=== PATIENT | female | born 1990 | race Caucasian/White ===

== ENCOUNTER 2017-12-20 05:00 | Inpatient (IN) ==
--- OUTSIDE RECORDS SUMMARY | 2017-12-20 05:11 | External Medical Summary | Clinical Summary ---
:1990 Author Organization [facility] Address [address] [place] [address] Care Team Providers Name Role Phone Edie Tovar MD Primary Care Provider Source Comments Some departments are not documenting in the electronic medical record. If you do not see the information that you expected, contact Release of Information in the Health Information Management department at [phone] for further assistance in locating additional records.[facility] Social History Tobacco Use Types Packs/Day Years Used Date Never Assessed Sex Assigned at Date Recorded Not on file Plan of Treatment Health Maintenance Due Date Last Done Comments PHYSICAL (COMPREHENSIVE) EXAM 1997 PERTUSSIS VACCINE 2001 HIV SCREENING 2005 TETANUS VACCINE 09/11/2007 INFLUENZA VACCINE 02/03/2018
--- OUTSIDE RECORDS SUMMARY | 2017-12-20 05:11 | External Medical Summary | Continuity of Care Document ---
:1990 Author Organization [email or web address] Address [address] [place], [place] [id number] Phone Allergies, Adverse Reactions, Alerts Substance Reaction Severity Status No Known Drug Allergies Unknown Active Medications Medication Instructions Dosage Effective Dates Status Comments (start - stop) STOOL SOFTENER take 1 capsule by - Active (unknown strength) oral route every day at bedtime as needed 28 mg take 1 tablet by Not Available - Active iron-800 mcg oral route every tablet day Benadryl 25 mg take 2 capsule by 50 MG - Active capsule oral route every 4 - 6 hours as needed as needed Problems Condition Effective Dates (start - stop) Clinical Status Encntr screen for infections w sexl - mode of transmiss Encounter for screening for oth - infec/parastc diseases Encounter for suprvsn of normal - , first trimester Encounter For Other Specified - Screening 10 weeks gestation of - Encounter for suprvsn of normal - , third trimester 31 weeks gestation of - Encounter for suprvsn of normal - , third trimester 33 weeks gestation of - Matern care for oth or susp poor fetl - grth, 2nd tri, unsp Other malformation of placenta, second - trimester Encounter for suprvsn of normal - , second trimester 27 weeks gestation of - Maternal care for excess growth, - second tri, unsp 14 weeks gestation of - Maternal care for excess growth, - second tri, unsp Contact w and exposure to oth viral - communicable diseases 19 weeks gestation of - Oth disrd of amniotic fluid and - membrns, second tri, unsp Encounter for suprvsn of normal - , second trimester 19 weeks gestation of - Oth disrd of amniotic fluid and - membrns, second tri, unsp Other malformation of placenta, third - trimester 28 weeks gestation of - Other malformation of placenta, second - trimester Encounter for suprvsn of normal - , second trimester 23 weeks gestation of - Other malformation of placenta, third - trimester Encounter for suprvsn of normal - , third trimester 28 weeks gestation of - Encounter for suprvsn of normal - , third trimester 35 weeks gestation of - Procedures Procedure Date Unknown Results Test Name Date and Time Measure Units Reference Range Abnormal Flag Comments Unknown Advance Directives Directive Yes / No Effective Date File Name Unknown Encounters Encounter Practice Location Reason(s) Diagnoses Date Provider Care Team Description For Visit Members Viridiana [place] Encounter for Nov-2 Dougherty Referring In Womens suprvsn of normal 0-201 Layne. Provider: Albin VALLES, , third 8 700 Layne Dougherty PO Box [email or web address] weeks Medical , 700 1522, gestation of [facility], [facility] Dr [facility] Dr SMITH, 120, [place] 120, , Charles [place], [place], [place], tel: [phone]. , . tel: tel: [phone] Viridiana Soto Encounter for Nov-0 Dougherty Referring In Womens suprvsn of normal 6-201 Layne. Provider: Albin VALLES, , third 8 700 Layne Dougherty PO Box [email or web address] weeks Medical K, 700 1522, gestation of [facility] Dr [facility] Dr SMITH, 120, [place] 120, [id number], Charles [place], [facility], [place], tel: [phone]. , [place]. tel: tel: [phone] Viridiana Soto Juwan-0 Dougherty In Womens 3-201 Layne. [facility], 8 700 PO [address] Medical [address], [facility] [place], , [place], 120, [id number], [place], [place], tel:[phone] , [place]. tel: [phone] Viridiana [place] Encounter for Donnie-2 Dougherty Referring In Womens suprvsn of normal 2-201 Layne. Provider: Health REENA, , third 8 700 Layne Dougherty PO Box [id number] weeks Medical K, 700 1522, gestation of [facility] [place], Dr, [facility] Dr SMITH, 120, [place] 120, , [place], [place], [place], tel: [phone]. , [place]. tel: tel: [phone] Viridiana [place] Other Donnie-0 Dougherty Referring In Womens malformation of 6-201 Layne. Provider: Health REENA, placenta, third 8 700 Layne Dougherty PO Box trimesterEncounte Medical K, 700 1522, r for suprvsn of [place], normal , Dr, [facility] Dr SMITH, third [id number] 120, [place] 120, [id number], weeks gestation [place], [place], tel: [phone]. , [place]. tel: tel: [phone] Viridiana Soto Oth disrd of Donnie-0 Dougherty Referring In Womens Ultrasound amniotic fluid 6-201 Layne. Provider: Health REENA, and membrns, 8 700 Layne Dougherty PO Box second tri, Medical K, 700 1522, unspOther [facility] [place], malformation of Dr, [facility] Dr SMITH, placenta, third 120, [place] 120, [id number], [email or web address] weeks Charles [place], [place] gestation of [place], [place], tel:+ [phone]. , [place]. tel: tel: [phone] Viridiana [place] Matern care for September- Dougherty Referring In Womens oth or susp poor 5-201 Layne. Provider: Albin VALLES, fetl grth, 2nd 8 700 Layne Dougherty PO Box tri, unspOther Medical K, 700 1522, malformation of [facility] [place], placenta, second , [facility] Dr SIMTH, trimesterEncounte 120, [place] 120, , r for suprvsn of Charles [place], normal , LU[place], [place], tel:+[phone]. [email or web address] weeks , [place]. tel: gestation of tel: [phone] Viridiana Soto Other Apr-3 Dougherty Referring In Womens malformation of 0-201 Layne. Provider: Albin VALLES, placenta, second 8 700 Layne Dougherty PO Box [facility], 700 1522, [facility] , Dr, [facility] Dr SMITH, second 120, [place] 120, , [email or web address] weeks Charles [place], gestation of [place], [place], tel:+ [phone]. , [place]. tel: tel: [phone] Viridiana S[place] Oth disrd of Apr-0 Dougherty Referring In Womens amniotic fluid 2-201 Layne. Provider: Albin VALLES, and membrns, 8 700 Layne Dougherty PO Box second tri, Medical K, 700 1522, unspEncounter for [facility], suprvsn of normal Dr, [facility] Dr SMITH, , second 120, [place] 120, [id number], [email or web address] weeks Charles [place], [place] gestation of [place], tel:[phone]. , [place]. tel: tel: [phone] Viridiana S[place] Maternal care for Apr-0 Dougherty Referring In Womens Ultrasound excess 2-201 Layne. Provider: Albin VALLES, growth, second 8 700 Layne Doguherty PO Box tri, unspContact Medical , 700 1522, w and exposure to [facility], oth viral , [facility] Dr SMITH, communicable 120, [place] 120, [id number], [id number] weeks Charles [place], gestation of [place], [place], tel: [phone]. , [place]. tel: tel: [phone] Viridiana Soto Maternal care for Fe-2 Dougherty Referring In Womens excess 3-201 Layne. Provider: Health REENA, growth, second 8 700 Layne Dougherty PO Box tri, [email or web address] weeks [facility], 700 1522, gestation of [facility], , [facility] Dr SMITH, 120, [place] 120, [id number], Charles [place], [facility], [place], tel: [phone]. , [place]. tel: tel: [phone] Viridiana S[place] Encntr screen for May-2 Dougherty Referring In Womens infections w sexl 6-201 Layne. Provider: Albin VALLES, mode of 8 700 Layne Dougherty PO Box transmissEncounte Medical , 700 1522, r for screening [facility], for oth , [facility] Dr SMITH, infec/parastc 120, [place] 120, [id number], diseasesEncounter Charles [place], for suprvsn of [place], [place], tel: normal , [phone]. [facility] , . tel: trimesterEncounte tel: [phone] r For Other [id number] Specified [id number] weeks gestation of Viridiana S[place] Gianluca-0 Dougherty In Womens 9-201 Layne. Albin VALLES, 8 700 PO Box Medical [address], [place] [address] Mike [place], 120, [id number], [place], [place], tel:[phone] , [place]. tel: [phone] Family History Family Member Diagnosis Age At Onset No family history of Lung Disease No family history of Pulmonary Embolism No family history of Venous Thrombosis No family history of Stroke No family history of Hypertension No family history of Thyroid Disorder No family history of Kidney Disease No family history of Epilepsy No family history of Osteoporosis No family history of Diabetes No family history of Colon Cancer No family history of Breast Cancer No family history of Cardiovascular Disease No family history of Ovarian Cancer Immunizations Vaccine Date Status Comments Tdap completed Source: New Immunization Record Influenza, injectable, completed Source: Other Provider quadrivalent, preservative free, 3 yrs or older Influenza, injectable, completed Source: Other Provider quadrivalent, preservative free, 3 yrs or older Payers Payer name Insurance type Covered green party ID Authorization(s) [facility] [id number] [employer] [place] [employer] - Medicaid [place] [id number] [facility] [id number] [employer] - Medicaid [place] [id number] Social History Type Description Quantity Date Captured Unknown Vital Signs Date / Height Weight BMI Pulse Blood Temperature Respiratory Body Head BMI Time: Rate Pressure Rate Surface Circumference percentile Area Unknown Chief Complaint And Reason For Visit Unknown Chief Complaint And Reason For Visit Reason For Referral Reason For Referral Unknown Plan Of Care Date Type Action Status Appointment Mindy Franklin BOOKED Appointment Mindy Franklin BOOKED Appointment Mindy Franklin BOOKED Appointment Mindy Franklin BOOKED Appointment Mindy Franklin BOOKED Future Order: Radiology Order Complete OB Ultrasound > 14 Weeks Ordered ([id number]) Future Order: Radiology Order Ultrasound OB Follow-up ([id number]) Ordered Date Type Problem Goal Intervention Status Start Date Unknown. History Of Present Illness Encounter Date Complaint History Of Present Illness This patient has no known history of present illness Functional Status Encounter Date Functional Assessment Cognitive Assessment Unknown Medications Administered Medication Instructions Dosage Effective Dates (start - stop) Status Comments Drug Treatment Unknown Instructions Date Instruction Additional Information gestational glucose lab screening Zika virus assessment & precautions dentist, wt gain 25-35# HIV and other routine tests risk factors identified by history anticipated course of care nutrition and weight gain counseling, special diet toxoplasmosis precautions (cats / raw meat) exercise indications for ultrasound influenza vaccine environmental / work hazards travel tobacco (ask, advise, assess, assist and arrange) alcohol illicit / recreational drugs use of any medications (including supplements, vitamins, herbs, OTC drugs) smoking counseling domestic violence seat belt use genetic testing new ob handbook
--- OUTSIDE RECORDS SUMMARY | 2017-12-20 05:11 | External Medical Summary | Continuity of Care Document ---
:1990 Author Organization [facility] Address [address] [place], [place] [id number] Phone Allergies, Adverse Reactions, Alerts Substance Reaction Severity Status No Known Drug Allergies Unknown Active Medications Medication Instructions Dosage Effective Dates Status Comments (start - stop) acyclovir 400 mg take 1 tablet by 400 MG - Active tablet oral route 3 times every day STOOL SOFTENER take 1 capsule by - [...] Effective Dates (start - stop) Clinical Status Encounter for suprvsn of normal - , third trimester 35 weeks gestation of - Encntr screen for infections w sexl - [...] third trimester 33 weeks gestation of - Oth noninflammatory disorders of vulva - and perineum Encounter for suprvsn of normal - , third trimester 36 weeks gestation of - Matern care for [...] third trimester 28 weeks gestation of - Other viral diseases complicating - , third trimester Encounter for suprvsn of normal - , third trimester 37 weeks gestation of - Encounter For Screening For - Streptococcus B 36 weeks gestation of - Procedures Procedure Date OB Visit No Charge - UPSTAIRS MAID Results Test Name Date and Time Measure Units Reference Range Abnormal Flag Comments Unknown Advance Directives Directive Yes / No Effective Date File Name Unknown Encounters Encounter Practice Location Reason(s) Diagnoses Date Provider Care Team Description For Visit Members [facility] [place] Other viral Dougherty Referring In Womens diseases 3-201 Layne. Provider: Health PA, complicating 8 700 Laynejune Zamudiob PO Box , third Medical K, 700 1522, [facility] lilliam Mckeon for suprvsn of Dr, [place] [facility] Dr SMITH, normal , 120, [place] 120, [id number], third Charles [place], [place] weeks gestation [place], [place], tel: of [phone]. , [place]. tel: tel: [phone] Viridiana [place] Oth Juwan-3 Dougherty Referring In Womens noninflammatory 0-201 Layne. Provider: Albin VALLES, disorders of 8 700 Layne Dougherty PO Box vulva and Medical , 700 1522, perineumEncounter [facility], for suprvsn of Dr, [facility] Dr SMITH, normal , 120, [place] 120, [id number], third [email or web address] Charles [place], [place] weeks gestation [place]IS SMITH, tel: of [phone]. , [place]. tel: tel: [phone] [place] Encounter For Juwan-2 Lon Referring In Womens 7-201 Kyle. 700 Provider: Albin VALLES, Screening For 8 Medical Layne Dougherty PO Box Streptococcus B36 [facility], 700 1522, weeks gestation , [facility], of 120, [place] [address] SMITH, Charles, [facility] 120, [id number], Charles SMITH, [id number] [place], tel: , [place]. [phone]. tel: tel: [phone] [place] Encounter for Juwan-2 Dougherty Referring In Womens suprvsn of normal 0-201 Layne. Provider: Albin VALLES, , third 8 700 Layne Dougherty PO Box weeks [facility], 700 1522, gestation of [facility], , [facility] Dr SMITH, 120, [place] 120, [id number], [place], [place] SMITH, tel:[phone]. , [place]. tel: tel: [phone] Viridiana [place] Encounter for Juwan-0 Dougherty Referring In Womens suprvsn of normal 6-201 Layne. Provider: Albin VALLES, , third 8 700 Layne Dougherty PO Box [email or web address] weeks [facility], 700 1522, gestation of [facility], , [facility] Dr SMITH, 120, [place] 120, [id number], [place], [place] SMITH, tel: [phone]. , [place]. tel: tel: [phone] Viridiana [place] Encounter for Donnie-2 Dougherty Referring In Womens suprvsn of normal 2-201 Layne. Provider: Albin VALLES, , third 8 700 Layne Dougherty PO Box [email or web address] weeks Medical , 700 1522, gestation of [facility], , [facility] Dr SMITH, 120, [place] 120, , [place], [place] SMITH, tel:[phone]. , [place]. tel: tel: [phone] Associates [place] Other Donnie-0 Dougherty Referring In Womens malformation of 6-201 Layne. Provider: Albin VALLES, placenta, third 8 700 Layne Dougherty PO Box trimesterEncounte Medical , 700 1522, r for suprvsn of [facility], normal , , [facility] Dr SMITH, third [id number] 120, [place] 120, [id number], weeks gestation Charles [place], [place] of [place], tel: [phone]. , [place]. tel: tel: [phone] Viridiana S[place] Oth disrd of Donnie-0 Dougherty Referring In Womens Ultrasound amniotic fluid 6-201 Layne. Provider: Albin VALLES, and membrns, 8 700 Layne Dougherty PO Box second tri, Medical , 700 1522, unspOther [facility], malformation of Dr, [facility] Dr SMITH, placenta, third 120, [place] 120, [id number], [email or web address] weeks Charles [place], [place] gestation of [place] SMITH, tel:+ [phone]. , [place]. tel: tel: [phone] Viridiana S[place] Matern care for May-2 Dougherty Referring In Womens oth or susp poor 5-201 Layne. Provider: Albin VALLES, fetl grth, 2nd 8 700 Layne Dougherty PO Box tri, unspOther Medical , 700 1522, [facility], [facility], second , [facility] Dr SMITH, trimesterEncounte 120, [place] 120, , r for suprvsn of Charles [place], normal , LUIS, [place], tel:+ second [phone]. [email or web address] weeks , [place]. tel: gestation of tel: [phone] Associates Charles Other Apr-3 Dougherty Referring In Womens malformation of 0-201 Layne. Provider: Albin VALLES, placenta, second 8 700 Layne Dougherty [facility], 700 152, [facility], normal , Dr, [facility] Dr SMITH, second 120, [place] 120, , [email or web address] weeks Charles [place], gestation of [place] SMITH, tel: [phone]. , [place]. tel: tel: [phone] Associates Charles Ot disrd of Apr-0 Dougherty Referring In Womens amniotic fluid 2-201 Layne. Provider: Albin VALLES and membrns, 8 700 Layne Dougherty PO Box second [facility], Medical , 700 152, unspEncounter for [facility], suprvsn of normal Dr, [facility] Dr SMITH, , second 120, [place] 120, [id number], [id number] weeks Charles [place], gestation of [place] SMITH, tel: [phone]. , [place]. tel: tel: [phone] Associates Charles Maternal care for Apr-0 Dougherty Referring In Womens Ultrasound excess 2-201 Layne. Provider: Albin VALLES, growth, second 8 700 Layne Dougherty PO Box tri, unspContact Medical , 700 1522, w and exposure to [facility], oth viral , [facility] Dr SMITH, communicable 120, [place] 120, [id number], [id number] weeks Charles [place], gestation of [place] SMITH, tel:+ [phone]. , . tel: tel: [phone] Viridiana Soto Maternal care for Jun- Dougherty Referring In Womens excess 3-201 Layne. Provider: Albin VALLES, growth, second 8 700 Layne Dougherty PO Box tri, [email or web address] weeks Medical , 700 1522, gestation of [facility], , [facility] Dr SMITH, 120, [place] 120, [id number], [place], [place], [place], tel: [phone]. , . tel: tel: [phone] Viridiana S[place] Encntr screen for May- Dougherty Referring In Womens infections w sexl 6-201 Layne. Provider: Albin VALLES, mode of 8 700 Layne Dougherty PO Box transmissEncounte Medical , 700 1522, r for screening [facility], for oth , [facility] Dr SMITH, infec/parastc 120, [place] 120, , diseasesEncounter Charles [place], for suprvsn of [place], [place], tel: normal , [phone]. [facility] , . tel: trimesterEncounte tel: [phone] r For Other [id number] Specified [id number] weeks gestation of Viridiana [place] Gianluca-0 Dougherty In Womens 9-201 Layne. Albin VALLES, 8 700 PO Box Medical [address]22, [place], , [place], 120, [id number], [place], tel: [phone] , . tel: [phone] Family History Family Member Diagnosis Age At [...] older Payers Payer name Insurance type Covered democrat ID Authorization(s) [facility] [id number] [employer] - Medicaid [place] [id number] [facility] [id number] [employer] [place] [employer] [place] Medicaid [place] [id number] Social History Type Description Quantity Date Captured Alcohol Use Details No Caffeine Use Details Unknown Tobacco Use Status Unknown Smoking Status Never smoker Vital Signs Date / Height Weight BMI Pulse Blood Temperature Respiratory Body Head BMI Time: Rate Pressure Rate Surface Circumference percentile Area 170.10 29.6 131/85 2018 lbs 6 mm[Hg] 2:38 kg/m PM eter (2) Chief Complaint And Reason For Visit Unknown Chief Complaint And Reason For Visit Reason For Referral Reason For Referral Unknown Plan Of Care Date Type Action Status Appointment Mindy Franklin BOOKED Appointment Mindy Franklin BOOKED Appointment Mindy Franklin BOOKED Future Order: Radiology Order Complete OB Ultrasound > 14 Weeks Ordered ([id number]) Future Order: Radiology Order Ultrasound OB Follow-up ([id number]) Ordered Date Type Problem Goal Intervention Status [...]
--- OUTSIDE RECORDS SUMMARY | 2017-12-20 05:11 | External Medical Summary | Continuity of Care Document ---
:1990 Author Organization [facility] Chantilly Lace PA Address [address] [place], [place] [address] Phone Allergies, Adverse Reactions, Alerts Substance Reaction Severity Status No Known Drug Allergies Unknown Active Medications Medication Instructions Dosage Effective Dates Status Comments (start - stop) STOOL SOFTENER take 1 capsule by - Active (unknown strength) oral route every day at bedtime as needed Benadryl 25 mg take 2 capsule by 50 MG - Active capsule oral route every 4 - 6 hours as needed as needed 28 mg take 1 tablet by Not Available - Active iron-800 mcg oral route every tablet day Problems Condition Effective Dates (start - stop) Clinical Status Encounter for suprvsn of normal - , third trimester 33 weeks gestation of - Encntr screen for infections w sexl - mode of transmiss Encounter for screening for oth - infec/parastc diseases Encounter for suprvsn of normal - , first trimester Encounter For Other Specified - Screening 10 weeks gestation of - Encounter for suprvsn of normal - , third trimester 31 weeks gestation of - Matern care for [...] Procedures Procedure Date OB Visit No Charge Results Test Name Date and Time Measure Units Reference Range Abnormal Flag Comments Unknown Advance Directives Directive Yes / No Effective Date File Name Unknown Encounters Encounter Practice Location Reason(s) Diagnoses Date Provider Care Team Description For Visit Members Viridiana Soto Encounter for Nov-2 Dougherty Referring In Womens suprvsn of normal 0-201 Layne. Provider: Health PA, , third 8 700 Layne Dougherty PO Box [id number] weeks Medical , 700 1522, gestation of [facility], Dr [facility] [address] SMITH, 120, [place] 120, [id number], Charles [place], [facility], [place], tel: [phone]. [id number] , [place]. tel: tel: [phone] Viridiana Soto Encounter for Nov-0 Dougherty Referring In Womens suprvsn of normal 6-201 Layne. Provider: Health PA, , third 8 700 Layne Dougherty PO Box [id number] weeks Medical , 700 1522, gestation of [facility] Dr [facility] [address] SMITH, 120, [place] 120, [id number], Charles [place], [facility], [place], tel: [phone]. , [place]. tel: tel: [phone] Associates [facility] Encounter for Donnie-2 Dougherty Referring In Womens suprvsn of normal 2-201 Layne. Provider: Albin VALLES, , third 8 700 Layne Dougherty PO Box [id number] weeks Medical , 700 1522, gestation of [facility], Dr, [facility] Dr SMITH, 120, [place] 120, , Charles [place], [place] SMITH, tel: [phone]. , [place]. tel: tel: [phone] Associates Charles Other Donnie-0 Dougherty Referring In Womens malformation of 6- Layne. Provider: Albin VALLES, placenta, third 8 700 Layne Dougherty PO Box trimesterEncounte Medical , 700 1522, r for suprvsn of [facility], normal , , [facility] [address] SMITH, third [email or web address] 120, [place] 120, [id number], weeks gestation Charles [place], [place] of [place], [place], tel: [phone]. , [place]. tel: tel: [phone] Viridiana Soto Oth disrd of Donnie-0 Dougherty Referring In Womens Ultrasound amniotic fluid 6- Layne. Provider: Albin VALLES, and membrns, 8 700 Layne Dougherty PO Box second tri, Medical , 700 1522, unspOther [facility], malformation of Dr, [facility] Dr SMITH, placenta, third 120, [place] 120, [id number], [email or web address] weeks Charles [place], [place] gestation of [place], [place], tel: [phone]. , [place]. tel: tel: [phone] Viridiana Soto Matern care for May-2 Dougherty Referring In Womens oth or susp poor 5-201 Layne. Provider: Health REENA, fetl grth, 2nd 8 700 Layne Dougherty PO Box tri, [facility], malformation of [facility], placenta, second Dr, [facility] Dr SMITH, trimesterEncounte 120, [place] 120, [id number], r for suprvsn of Charles [place], normal , [place] SMITH, tel: second [phone]. [email or web address] weeks , [place]. tel: gestation of tel: [phone] Associates Charles Other Apr-3 Dougherty Referring In Womens malformation of 0-201 Layne. Provider: Health REENA, placenta, second 8 700 Layne Dougherty PO Box trimesterEncounte Medical K, 700 1522, r for suprvsn of [place], normal , , [facility] Dr SMITH, second 120, [place] 120, [id number], [email or web address] weeks Charles [place], gestation of LU[place] SMITH, tel: [phone]. , [place]. tel: tel: [phone] Viridiana Soto Oth disrd of Apr-0 Dougherty Referring In Womens amniotic fluid 2-201 Layne. Provider: Health REENA, and membrns, 8 700 Layne Dougherty PO Box second tri, Medical K, 700 1522, unspEncounter for [facility] Mike, suprvsn of normal Dr, [facility] Dr SMITH, , second 120, [place] 120, [id number], [email or web address] weeks Charles [place], gestation of LUIS SMITH, tel:+ [phone]. , [place]. tel: tel: [phone] Viridiana Soto Maternal care for Apr-0 Dougherty Referring In Womens Ultrasound excess 2-201 Layne. Provider: Health REENA, growth, second 8 700 Layne Dougherty PO Box tri, unspContact Medical K, 700 1522, w and exposure to [facility] Mike, oth viral , [facility] Dr SMITH, communicable 120, [place] 120, [id number], [email or web address] weeks Charles [place], gestation of LUIS SMITH, tel:[phone]. , [place]. tel: tel: [phone] Viridiana Soto Maternal care for Jun- Dougherty Referring In Womens excess 3-201 Layne. Provider: Albin VALLES, growth, second 8 700 Layne Dougherty PO Box tri, unsp14 weeks Medical , 700 1522, gestation of [facility], Dr, [facility] Dr SMITH, 120, [place] 120, [id number], Charles [place], [place], [place], tel:+ [phone]. , . tel: tel: [phone] Viridiana Soto Encntr screen for Dougherty Referring In Womens infections w sexl 6-201 Layne. Provider: Albin VALLES, mode of 8 700 Layne Dougherty PO Box [facility] , 700 1522, r for screening [facility], for oth , [facility] Dr SMITH, infec/parastc 120, [place] 120, , [facility], for suprvsn of [place], [place], tel: normal , [phone]. [facility] , . tel: trimesterEncounte tel: [phone] r For Other [phone] Specified [id number] weeks gestation of Viridiana Soto May-0 Dougherty In Womens 9-201 Layne. Albin VALLES, 8 700 PO Box Medical 1522, [place], , [facility] [place], 120, , [facility], tel: [phone] , . tel: [phone] Family History Family Member Diagnosis Age At [...] older Payers Payer name Insurance type Covered republican ID Authorization(s) [facility] [id number] [employer] [place] [employer] [place] [id number] [facility] [id number] [employer] [place] [employer] [place] [id number] Social History Type Description Quantity Date Captured Alcohol Use Details No Caffeine Use Details Unknown Tobacco Use Status Unknown Smoking Status Never smoker Vital Signs Date / Height Weight BMI Pulse Blood Temperature Respiratory Body Head BMI Time: Rate Pressure Rate Surface Circumference percentile Area 164.30 28.6 116/ lbs 4 mm[Hg] 11:10 kg/m AM eter (2) Chief Complaint And Reason For Visit Unknown Chief Complaint And Reason For Visit Reason For Referral Reason For Referral Unknown Plan Of Care Date Type Action Status Appointment Mindy Franklin BOOKED Appointment Mindy Franklin BOOKED Appointment Mindy Franklin BOOKED Appointment Mindy Franklin BOOKED Appointment Mindy Franklin BOOKED Future Order: Radiology Order Complete OB Ultrasound > 14 Weeks Ordered ([id number]) Future Order: Radiology Order Ultrasound OB Follow-up ([id number]) Ordered Date Type Problem Goal Intervention Status [...]
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
--- OUTSIDE RECORDS SUMMARY | 2017-12-20 05:12 | External Medical Summary | Continuity of Care Document ---
:1990 Author Organization [facility] Address [address] [place], [place] [phone] Phone Allergies, Adverse Reactions, Alerts Substance Reaction Severity Status No Known Drug Allergies Unknown Active Medications Medication Instructions Dosage Effective Dates Status Comments (start - stop) 28 mg take 1 tablet by Not [...] - Screening 10 weeks gestation of - Maternal care for excess growth, - second tri, unsp 14 weeks gestation of - Procedures Procedure Date Unknown Results Test Name Date and Time Measure Units Reference Range Abnormal Flag Comments Unknown Advance Directives Directive Yes / No Effective Date File Name Unknown Encounters Encounter Practice Location Reason(s) Diagnoses Date Provider Care Team Description For Visit Members Viridiana Soto Jul- Dougherty In Womens 5-201 Layne. Health REENA, 8 700 PO Box Medical 15[address], [place] [address] Mike, [place], 120, , [place], [place], tel:[phone] , [place]. tel: [phone] Viridiana Soto Maternal care for Jun- Dougherty Referring In Womens excess 3-201 Layne. Provider: Albin VALLES, growth, second tri, 8 700 Layne Dougherty PO Box unsp14 weeks Medical K, 700 1522, gestation of [place], , [facility] [place], 120, [place] 120, , [facility] [place] [place], tel: [phone]. , . tel: tel: [phone] Associates Charles Encntr screen for May- Dougherty Referring In Womens infections w sexl 6-201 Layne. Provider: Health REENA, mode of 8 700 Layne Dougherty PO Box [facility] K, 700 1522, for screening for [place], ot infec/parastc , [facility] Dr SMITH, diseasesEncount 120, [place] 120, , for suprvsn of Charles [place], normal , [place], tel: first [phone]. [facility] , . tel: For Other Specified tel: [phone] [email or web address] weeks gestation of Viridiana Soto May- Dougherty In Womens 9-201 Layne. Health REENA, 8 700 PO Box Medical 1522, [place], , [place], 120, , [facility] [place], tel: [phone] , . tel: [phone] Family History Family Member Diagnosis Age At [...] Ovarian Cancer Immunizations Vaccine Date Status Comments Influenza, injectable, quadrivalent, completed Source: Other Provider preservative free, 3 yrs or older Influenza, injectable, quadrivalent, completed Source: Other Provider preservative free, 3 yrs or older Payers Payer name Insurance type Covered republican ID Authorization(s) TOÑO AGUILAR [id number] [employer] - Medicaid [place] [id number] Social History Type Description Quantity Date Captured [...] Mindy Franklin BOOKED Appointment Mindy Franklin BOOKED Date Type Problem Goal Intervention Status Start Date Unknown. History Of Present Illness Encounter Date Complaint History Of Present Illness This patient has no known history of present illness Functional Status Encounter Date Functional Assessment Cognitive Assessment Unknown Medications Administered Medication Instructions Dosage Effective Dates (start - stop) Status Comments Drug Treatment Unknown Instructions Date Instruction Additional Information Zika virus assessment & precautions dentist, wt [...]
--- OUTSIDE RECORDS SUMMARY | 2017-12-20 05:12 | External Medical Summary | Continuity of Care Document ---
:1990 Author Organization [facility] Address [address] [place], [place] [phone] Phone Allergies, Adverse Reactions, Alerts Substance Reaction Severity Status No Known Drug Allergies Unknown Active Medications Medication Instructions Dosage Effective Dates Status Comments (start - stop) 28 mg take 1 tablet by Not Available - Active iron-800 mcg oral route every tablet day Problems Condition Effective Dates (start - stop) Clinical Status Maternal care for excess growth, - second tri, unsp 14 weeks gestation of - Encntr screen for infections w sexl - mode of transmiss Encounter for screening for oth - infec/parastc diseases Encounter for suprvsn of normal - , first trimester Encounter For Other Specified - Screening 10 weeks gestation of - Procedures Procedure Date OB Visit No Charge Results Test Name Date and Time Measure Units Reference Range Abnormal Flag Comments Unknown Advance Directives Directive Yes / No Effective Date File Name Unknown Encounters Encounter Practice Location Reason(s) Diagnoses Date Provider Care Team Description For Visit Members Viridiana Soto Maternal care for Jun- Dougherty Referring In Womens excess 3-201 Layne. Provider: Health [place], growth, second tri, 8 700 Layne Dougherty PO Box unsp14 weeks Medical K, 700 1522, gestation of [place], , [place], 120, [place] 120, [id number], Charles [place], [place], [place], tel:[phone]. [id number] , [place]. tel:+ tel: [phone] Viridiana Soto Encntr screen for Gianluca-2 Dougherty Referring In Womens infections w sexl 6-201 Layne. Provider: Health REENA, mode of 8 700 Layne Dougherty PO Box [facility] K, 700 1522, for screening for [place], peter infec/parastc , [facility] Dr SMITH, [facility], [place] 120, , for suprvsn of [facility] normal , [place], tel: first [phone]. [facility] , . tel:+[phone] For Other Specified tel: [phone] [id number] weeks gestation of Associates [place] Dougherty In Womens Layne. Albin VALLES, 8 700 PO [address] Medical [address]22, [place], , [place], 120, [id number], [facility] [place], tel: [phone] , . tel: [phone] Family History Family Member Diagnosis Age At [...] older Payers Payer name Insurance type Covered libertarian ID Authorization(s) [facility] [id number] [employer] - Medicaid [place] [id number] Social History Type Description Quantity Date Captured Alcohol Use Details No Caffeine Use Details Unknown Tobacco Use Status Unknown Smoking Status Never smoker Vital Signs Date / Height Weight BMI Pulse Blood Temperature Respiratory Body Head BMI Time: Rate Pressure Rate Surface Circumference percentile Area 143.50 25.0 124/77 2018 lbs 2 mm[Hg] 9:41 kg/m AM eter (2) Chief Complaint And [...]
--- OUTSIDE RECORDS SUMMARY | 2017-12-20 05:12 | External Medical Summary | Continuity of Care Document ---
:1990 Author Organization [facility] Address [address] [place], [place] [phone] Phone Allergies, Adverse Reactions, Alerts Substance Reaction [...] Care Team Description For Visit Members Associates Charles Encntr screen for Dougherty Referring In Womens infections w sexl 6-201 Layne. Provider: Albin VALLES, mode of 8 700 Layne Dougherty PO Box [facility], 700 7152, for screening for [facility], ot infec/parastc , [facility] [place], [facility] 120, [place] 120, [id number], for suprvsn of Charles [place], normal , [place], [place], tel:+[phone]. [id number] [facility] , . tel:+[phone] For Other Specified tel: [phone] [id number] weeks gestation of Associates Charles Dougherty In Womens 5-201 Layne. [facility], 8 700 PO Box Medical [address], [place] [address] Mike, [facility] [place], 120, [id number], [facility] [place], tel:[phone] 1967[address] , . tel: [phone] Viridiana Soto Dougherty In Womens 9-201 Layne. [facility], 8 700 PO [place] [facility] [address], [address] Mike, [place], 120, [id number], [facility] [place], tel:[phone] , [place]. tel: [phone] Family History Family Member Diagnosis Age At [...] Insurance type Covered green party ID Authorization(s) [facility] [id number] Social History Type Description Quantity Date Captured Unknown Vital Signs Date / Height Weight BMI Pulse Blood Temperature Respiratory Body Head BMI Time: Rate Pressure Rate Surface Circumference percentile Area Unknown Chief Complaint And Reason For Visit Unknown Chief Complaint And Reason For Visit Reason For Referral Reason For Referral Unknown Plan Of Care Date Type Action Status Appointment Mindy Franklin BOOKED Future Order: Lab Order Pap Smear With HPV Reflex If ASCUS Ordered ([id number]), Collected on: Date Type Problem Goal Intervention Status Start [...]
--- OUTSIDE RECORDS SUMMARY | 2017-12-20 05:12 | External Medical Summary | Continuity of Care Document ---
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, second tri, unsp Encounter for suprvsn of normal - , second trimester 19 weeks gestation of - Encntr screen for [...] communicable diseases 19 weeks gestation of - Procedures Procedure Date 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 Provider: marielle Bermudez 8 700 Layne Dougherty PO Box second tri, Medical K, 700 1522, unspEncounter for [facility], suprvsn of normal , [facility] [address] SMITH, , second 120, [place] 120, , [id number] weeks Charles [place], gestation of [place] SMITH, tel:+ [phone]. , [place]. tel: tel: [phone] Viridiana [place] Maternal care for Apr-0 Dougherty Referring In Womens Ultrasound excess 2-201 Layne. Provider: Health REENA, growth, second 8 700 Layne Dougherty PO [address] tri, unspContact Medical , 700 1522, w and exposure to [facility], otliam viral , [facility] Dr SMITH, communicable 120, [place] 120, , [email or web address] weeks Charles [place], gestation of [place] SMITH, tel:+ [phone]. , [place]. tel: tel: [phone] Viridiana [place] Maternal care for Feb-2 Dougherty Referring In Womens excess 3-201 Layne. Provider: Albin VALLES, growth, second 8 700 Layne Dougherty PO Box tri, unsp14 weeks Medical , 700 1522, gestation of [facility] Mike, , [facility] Dr SMITH, 120, [place] 120, , Charles [place], [place], [place], tel: [phone]. , [place]. tel: tel: [phone] Viridiana [place] Encntr screen for Gianluca-2 Dougherty Referring In Womens infections w sexl 6-201 Layne. Provider: Health REENA, mode of 8 700 Layne Dougherty PO Box [facility], 700 1522, r for screening [facility], for oth , [facility] Dr SMITH, infec/parastc 120, [place] 120, , diseasesEncounter Charles [place], for suprvsn of LUIS, LUIS, tel: normal , [phone]. first , [place]. tel:+ trimesterEncounte tel: [phone] r For Other [id number] Specified [id number] weeks gestation of Associates Charles Dougherty In Womens 9-201 [facility], 8 700 [facility] [address], [address] Mike, [facility] [place], 120, [id number], [place], [place], tel: [phone] , . tel: [phone] Family History Family Member Diagnosis Age At [...] older Payers Payer name Insurance type Covered constitution party ID Authorization(s) [facility] [id number] [employer] [place] [employer] - Medicaid [place] [id number] Social History Type Description Quantity Date Captured Alcohol Use Details No Caffeine Use Details Unknown Tobacco Use Status Unknown Smoking Status Never smoker Vital Signs Date / Height Weight BMI Pulse Blood Temperature Respiratory Body Head BMI Time: Rate Pressure Rate Surface Circumference percentile Area 25.0 2 10:39 kg/m AM eter (2) 148.90 25.9 120/75 2018 lbs 6 mm[Hg] 10:45 kg/m AM eter (2) Chief Complaint And Reason For Visit Unknown Chief Complaint And Reason For Visit Reason For Referral Reason For Referral Unknown Plan Of Care Date Type Action Status Appointment Mindy Franklin BOOKED Future Order: Radiology Order Complete OB Ultrasound > 14 Weeks Ordered ([id number]) Date Type Problem Goal Intervention Status Start Date Unknown. History Of Present Illness Encounter Date Complaint History Of Present Illness This patient has no known history of present illness Functional Status Encounter Date Functional Assessment Cognitive Assessment Unknown Medications Administered Medication Instructions Dosage Effective Dates (start - stop) Status Comments Drug Treatment Unknown Instructions Date Instruction Additional Information Zika virus assessment & precautions dentistkatelynn gain 25-35# HIV and other routine tests [...]
--- OUTSIDE RECORDS SUMMARY | 2017-12-20 05:12 | External Medical Summary | Continuity of Care Document ---
:1990 Author Organization [facility] Address [address] [place], [place] [id number] Phone Allergies, Adverse Reactions, Alerts Substance Reaction [...] - trimester 28 weeks gestation of - Encntr screen for [...] second trimester 19 weeks gestation of - Other malformation of placenta, second - trimester Encounter for suprvsn of normal - , second trimester 23 weeks gestation of - Other malformation of placenta, third - trimester Encounter for suprvsn of normal - , third trimester 28 weeks gestation of - Procedures Procedure Date Ultrasnd preg uterus, flwup/repeat Results Test Name Date and Time Measure Units Reference Range Abnormal Flag Comments Unknown Advance Directives Directive Yes / No Effective Date File Name Unknown Encounters Encounter Practice Location Reason(s) Diagnoses Date Provider Care Team Description For Visit Members Viridiana [place] Encounter for Dougherty Referring In Womens suprvsn of normal 2-201 Layne. Provider: Albin VALLES, , third 8 700 Layne Dougherty PO Box [id number] weeks Medical , 700 1522, gestation of [facility], , [facility] Dr SMITH, 120, [place] 120, [id number], [place], [place] SMITH, tel: [phone]. , [place]. tel: tel: [phone] Viridiana [place] Other Donnie-0 Dougherty Referring In Womens malformation of 6-201 Layne. Provider: Albin VALLES, placenta, third 8 700 Layne Dougherty PO Box trimesterEncounte Medical , 700 1522, r for suprvsn of [facility], normal , , [place] Dr SMITH, third [email or web address] 120, [place] 120, [id number], weeks gestation Charles [place], of LUIS SMITH, tel: [phone]. , [place]. tel: tel: [phone] Viridiana [place] Otliam disrd of Donnie-0 Dougherty Referring In Womens Ultrasound amniotic fluid 6-201 Layne. Provider: Health PA, and membrns, 8 700 Layne Dougherty PO Box second [facility], Medical K, 700 152, unspOther [facility] Mike, malformation of Dr, [facility] Dr SMITH, placenta, third 120, [place] 120, [id number], [id number] weeks Charles [place], gestation of [place] SMITH, tel:+ [phone]. , [place]. tel: tel: [phone] Viridiana [place] Matern care for September- Dougherty Referring In Womens oth or susp poor 5-201 Layne. Provider: Albin VALLES, fetl grth, 2nd 8 700 Layne Dougherty PO Box tri, [facility], 700 152, malformation of [facility] Mike, placenta, second , [facility] Dr SMITH, trimesterEncounte 120, [place] 120, , r for suprvsn of Charles [place], normal , LU[place], [place], tel: second [phone]. [id number] weeks , [place]. tel: gestation of tel: [phone] Viridiana [place] Other Apr-3 Dougherty Referring In Womens malformation of 0-201 Layne. Provider: Albin VALLES, placenta, second 8 700 Layne Dougherty PO Box trimesterEnckern valleye Medical , 700 152, r for suprvsn of [place], normal , Dr, [facility] Dr SMITH, second 120, [place] 120, [id number], [email or web address] weeks Charles [place], [place] gestation of LUIS SMITH, tel:+ [phone]. , [place]. tel: tel: [phone] Viridiana [place] Oth disrd of Apr-0 Dougherty Referring In Womens amniotic fluid 2-201 Layne. Provider: Albin VALLES, and membrns, 8 700 Layne Dougherty PO Box second [facility], Medical K, 700 152, unspEncounter for [facility], suprvsn of normal Dr, [facility] Dr SMITH, , second 120, [place] 120, [id number], [id number] weeks Charles [place], [place] gestation of LUIS SMITH, tel:[phone]. , [place]. tel: tel: [phone] Viridiana [place] Maternal care for Apr-0 Dougherty Referring In Womens Ultrasound excess 2-201 Layne. Provider: Albin VALLES, growth, second 8 700 Layne Dougherty PO Box tri, unspContact Medical , 700 1522, w and exposure to [facility], otliam viral , [facility] Dr SMITH, communicable 120, [place] 120, [id number], weeks Charles [place], gestation of [place], [place], tel: [phone]. , [place]. tel: tel: [phone] Viridiana [place] Maternal care for Feb-2 Dougherty Referring In Womens excess 3-201 Layne. Provider: Albin VALLES, growth, second 8 700 Layne Dougherty PO Box tri, unsp14 weeks Medical , 700 1522, gestation of [facility] Mike, , [facility] Dr SMITH, 120, [place] 120, [id number], Charles [place], [place], [place], tel: [phone]. , [place]. tel: tel: [phone] Viridiana [place] Encntr screen for Gianluca-2 Dougherty Referring In Womens infections w sexl 6-201 Layne. Provider: Albin VALLES, mode of 8 700 Layne Dougherty PO Box transmissEnckern valleye Medical , 700 1522, r for screening [facility] [place], for otliam [place], [facility] Dr SMITH, infec/parastc 120, [place] 120, [id number], diseasesEncounter Charles [place], for suprvsn of [place], [place], tel: normal , [phone]. [facility] , [place]. tel: trimesterEncounte tel: [phone] r For Other [id number] Specified [id number] weeks gestation of Associates Charles Gianluca-0 Dougherty In Womens 9-201 Layne. Albin VALLES, 8 700 PO Box Medical [address], [place] [address] Mike, [facility], 120, [id number], [place], [place], tel:[phone] , . tel:[phone] Family History Family Member Diagnosis Age At [...] name Insurance type Covered democrat ID Authorization(s) [facility] [id number] [employer] [place] [employer] - Medicaid [place] [id number] [facility] [id number] [employer] [place] [employer] - Medicaid [place] [id number] Social History Type Description Quantity Date Captured [...] Mindy Franklin BOOKED Future Order: Radiology Order Ultrasound OB Follow-up ([id number]) Ordered Future Order: Radiology Order Complete OB Ultrasound > 14 Weeks Ordered ([id number]) Date Type Problem Goal Intervention Status Start [...] virus assessment & precautions dentist, wt gain -35# HIV and other routine tests risk factors [...]
--- OUTSIDE RECORDS SUMMARY | 2017-12-20 05:12 | External Medical Summary | Continuity of Care Document ---
:1990 Author Organization [facility] Address [address] [place], [place] [id number] Phone Allergies, Adverse Reactions, Alerts Substance Reaction [...] Team Description For Visit Members Viridiana S[place] Jul-0 Dougherty In Womens 3-201 Layne. Health REENA, 8 700 PO Box Medical [address], [address] Mike, [place], 120, , [place], tel:[phone] , [place]. tel: [phone] Viridiana [place] Maternal care for Jun-2 Dougherty Referring In Womens excess 3-201 Layne. Provider: Albin VALLES, growth, second tri, 8 700 Layne Dougherty PO Box unsp14 weeks Medical K, 700 1522, gestation of [place], , [facility] [place], 120, [place] 120, , [facility] [place], [place], tel: [phone]. , . tel: tel: [phone] Associates Charles Encntr screen for May- Dougherty Referring In Womens infections w sexl 6-201 Layne. Provider: Health REENA, mode of 8 700 Layne Dougherty PO Box [facility] K, 700 1522, for screening for [place] Juarez Mckeon, ot infec/parastc , [facility] Dr SMITH, diseasesEncount 120, [place] 120, , for suprvsn of [place], normal , [place], [place], tel: first [phone]. [facility] , . tel: For Other Specified tel: [phone] [id number] weeks gestation of Viridiana [place] May- Dougherty In Womens 9-201 Layne. Health REENA, 8 700 PO Box Medical 1522, [place], , [facility] [place], 120, , [facility] [place], tel: [phone] , . tel: [phone] Family History Family Member Diagnosis Age At [...] Insurance type Covered green party ID Authorization(s) TOÑO AGUILAR [id number] [employer] [place] [employer] - Medicaid [place] [id number] Social History Type Description Quantity Date Captured [...]
--- OUTSIDE RECORDS SUMMARY | 2017-12-20 05:12 | External Medical Summary | Continuity of Care Document ---
:1990 Author Organization [facility] Address [address] [place], [place] [address] Phone Allergies, Adverse Reactions, Alerts Substance Reaction Severity Status No Known Drug Allergies Unknown Active Medications Medication Instructions Dosage Effective Dates Status Comments (start - stop) 28 mg take 1 tablet by Not Available - Active iron-800 mcg oral route every tablet day Linzess 290 mcg take 1 capsule by 290 MCG - No Longer capsule oral route every Active day on an empty stomach at least 30 minutes before 1st meal of the day Problems Condition Effective Dates (start - [...] Charles Encntr screen for Dougherty Referring In Women infections w sexl 6-201 Layne. Provider: Health [place], mode of 8 700 Layne Dougherty PO Box [facility], 700 1522, for screening for [place] [place] [facility] Mike, ot infec/parastc , [facility] Dr SMITH, [facility] 120, [place] 120, [id number], for suprvsn of Charles [place], normal , LUIS, LUIS, tel:[phone]. [id number] [facility] , . tel:[phone] For Other Specified tel:[phone] Sweudwyat46 weeks gestation of Associates Charles Dougherty In Womens 9-201 Layne. [facility], 8 700 PO [facility] 15[address], [place] [address] Mike, [facility], 120, [id number], [place], tel:[phone] , . tel: [phone] Family History Family Member Diagnosis Age At [...] Insurance type Covered alliance party ID Authorization(s) [facility] [id number] Social History Type Description Quantity Date Captured Alcohol Use Details No Caffeine Use Details tea 1 cup per day Tobacco Use Status Never smoked tobacco Smoking Status Never smoker Non-Smoking Tobacco Use : No Details Available : No Details Available Details Vital Signs Date / Height Weight BMI [...]
--- OUTSIDE RECORDS SUMMARY | 2017-12-20 05:12 | External Medical Summary | Continuity of Care Document ---
:1990 Author Organization [facility] Address [address] [place], [place] [phone] Phone Allergies, Adverse Reactions, Alerts Substance Reaction [...] weeks gestation of - Procedures Procedure Date No Charge Sonogram Initial OB Visit No Charge Cult, bactr, minh colonycnt, urine OB Panel With An HIV Venpnctr fngr/heel/ear stick routne Infct antign, chlamydia trac, ampl Neisseria Gonorrhoeae, Amplification Results Test Name Date and Time Measure Units Reference Range Abnormal Flag Comments Panel Description: OBSTETRIC PANEL WHITE BLOOD CELL 9.0 Thousand/uL 3.8-10.8 N COUNT 11:44:00 RED BLOOD CELL 4.36 Million/uL 3.80-5.10 N COUNT 11:44:00 HEMOGLOBIN 13.6 g/dL 11.7-15.5 N 11:44:00 HEMATOCRIT 39.2 % 35.0-45.0 N 11:44:00 MCV 89.9 fL 80.0-100.0 N 11:44:00 MCH 31.2 pg 27.0-33.0 N 11:44:00 MCHC 34.7 g/dL 32.0-36.0 N 11:44:00 RDW 11.2 % 11.0-15.0 N 11:44:00 PLATELET COUNT 225 Thousand/uL 140-400 N 11:44:00 MPV 11.7 fL 7.5-12.5 N 11:44:00 ABSOLUTE 5805 cells/uL 0435-3932 N NEUTROPHILS 11:44:00 ABSOLUTE 2304 cells/uL 850-3900 N LYMPHOCYTES 11:44:00 ABSOLUTE 792 cells/uL 200-950 N MONOCYTES 11:44:00 ABSOLUTE 81 cells/uL 15-500 N EOSINOPHILS 11:44:00 ABSOLUTE 18 cells/uL 0-200 N BASOPHILS 11:44:00 NEUTROPHILS 64.5 % N 11:44:00 LYMPHOCYTES 25.6 % N 11:44:00 MONOCYTES 8.8 % N 11:44:00 EOSINOPHILS 0.9 % N 11:44:00 BASOPHILS 0.2 % N 11:44:00 ANTIBODY SCREEN, NO ANTIBODIES N RBC W/REFL ID, 11:44:00 DETECTED Reference range TITER AND AG No antibodies detected This assay is a screening test for the detection of red blood cell antibodies. The test is not to be used for pretransfusion screening or for the medical management of an alloimmunized . ABO GROUP O 11:44:00 RH TYPE RH(D) 11:44:00 POSITIVE RPR (DX) W/REFL NON-REACTIVE NON-REACTIV N TITER AND 11:44:00 E CONFIRMATORY TESTING HEPATITIS B NON-REACTIVE NON-REACTIV N SURFACE ANTIGEN 11:44:00 E RUBELLA ANTIBODY 3.46 index N Index (IGG) 11:44:00 Interpretation ----- <0.90 Not consistent with Immunity 0.90-0.99 Equivocal > or=1.00 Consistent with Immunity The presence of rubella IgG antibody suggests immunization or past or current infection withrubella virus.Test performed at [facility] [address] [address]Ctnzfqe r: JENNIFER MENDOZA DO,MPH Panel Description: HIV 1/2 ANTIGEN/ANTIBODY,FOURTH GENERATION W/RFL HIV NON-REACTIVE NON-REACTIVE N HIV-1 antigen and HIV-1/HIV- 2 antibodies were AG/AB, 11:44:00 notdetected. There is no laboratory evidence of 4TH GEN HIVinfection. PLEASE NOTE: This information has been disclosed toyou from records whose confidentiality may beprotected by state law. If your state requires suchprotection, then the state law prohibits you frommaking any further disclosure of the informationwithout the specific written consent of the personto whom it pertains, or as otherwise permitted by law.A general authorization for the release of medical orother information is NOT sufficient for this purpose. For additional information please refer tohttp://education.Clink/faq/YLL102(This link is being provided for informational/educational purposes only.) The performance of this assay has not been clinicallyvalidated in patients less than 2 years old. REPORT COMMENT:FASTING:NOTest performed at [facility] [address] [id number]: JENNIFER MENDOZA DO,MPH Panel Description: Bacteria identified in Urine by Culture CULTURE, URINE, SEE NOTE CULTURE, URINE, ROUTINE MICRO ROUTINE 11:43:00 NUMBER: [id number] TEST STATUS: FINAL SPECIMEN SOURCE: URINE SPECIMEN QUALITY: ADEQUATE RESULT: No GrowthREPORT COMMENT:RFASTING:UNKNOWNTest performed at [facility] [address] [address]Fdokpjbl: JENNIFER MENDOZA DO,MPH Panel Description: CHLAMYDIA/N. GONORRHOEAE RNA, TMA CHLAMYDIA NOT DETECTED NOT DETECTED N TRACHOMATIS RNA, 11:41:00 TMA NEISSERIA NOT DETECTED NOT DETECTED N GONORRHOEAE RNA, 11:41:00 TMA [id number] SEE NOTE This test was 11:41:00 performed using the APTIMA COMBO2 Assay([employer] The analytical performance characteristics of this assay, when used to test SurePath specimens havebeen determined by [employer]. REPORT COMMENT:FASTING:UNKNO WNTest performed at [facility] [id number] [place] [address]Fqgsbduy: JENNIFER MENDOZA DO,MPH Advance Directives Directive Yes / No Effective Date File Name Unknown Encounters Encounter Practice Location Reason(s) Diagnoses Date Provider Care Team Description For Visit Members Associates Charles Encntr screen for Dougherty Referring In Womens infections w sexl 6-201 Layne. Provider: Health REENA, mode of 8 700 Layne Dougherty PO Box [facility] K, 700 1522, for screening for [facility] Mike, ot infec/parastc , [facility] [place], [facility] 120, [facility] 120, , for suprvsn of Charles [place], normal , [place], [place], tel:[phone]. [facility] , . tel:[phone] For Other Specified tel: [phone] [id number] weeks gestation of Viridiana [place] Dougherty In Womens 9-201 Layne. Health REENA, 8 700 PO [address] Medical [address], [address] Mike, [facility], 120, [id number], [facility], tel:[phone] , . tel: [phone] Family History Family Member Diagnosis Age At [...] name Insurance type Covered republican ID Authorization(s) SANCHEZ SMITH BL [id number] Social History Type Description Quantity Date Captured Alcohol Use Details No Caffeine Use Details tea 1 cup per day Tobacco Use Status Never smoked tobacco Smoking Status Never smoker Non-Smoking Tobacco Use : No Details Available : No Details Available Details Vital Signs Date / Height Weight BMI Pulse Blood Temperature Respiratory Body Head BMI Time: Rate Pressure Rate Surface Circumference percentile Area 143.00 24.9 122/74 2018 lbs 3 mm[Hg] 10:58 kg/m AM eter (2) Chief Complaint And [...]
--- OUTSIDE RECORDS SUMMARY | 2017-12-20 05:12 | External Medical Summary | Continuity of Care Document ---
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 Provider: Albin VALLES, , third 8 700 Layne Dougherty [address] [email or web address] weeks Medical , 700 1522, gestation of [facility], , [facility] [address] SMITH, 120, [place] 120, [id number], [place], LUIS SMITH, tel: [phone]. , [place]. tel: tel: [phone] Viridiana [place] Other Donnie-0 Dougherty Referring In Womens malformation of 6-201 Layne. Provider: Albin VALLES, placenta, third 8 700 Layne Dougherty PO Box trimesterEncounte Medical K, 700 1522, r for suprvsn of [facility], normal , , [place] [address] SMITH, third [email or web address] 120, [place] 120, [id number], weeks gestation Charles [place], of LUIS SMITH, tel: [phone]. , [place]. tel: tel: [phone] Viridiana [place] Ot disrd of Donnie-0 Dougherty Referring In Womens Ultrasound amniotic fluid 6-201 Layne. Provider: Albin VALLES, and membrns, 8 700 Layne Dougherty PO Box second [facility], Medical K, 700 152, unspOther [facility] Mike, malformation of Dr, [facility] [address] SMITH, placenta, third 120, Pil[place] 120, [id number], [email or web address] weeks Charles [place], gestation of LUIS SMITH, tel:[phone]. , [place]. tel: tel: [phone] Viridiana [place] Matern care for September- Dougherty Referring In Womens oth or susp poor 5-201 Layne. Provider: Health REENA, fetl grth, 2nd 8 700 Layne Dougherty PO Box tri, [facility] , 152, malformation of [facility] Mike, placenta, second , [facility] [address] SMITH, trimesterEncounte 120, Pil[place] 120, , r for suprvsn of Charles [place], normal , LUIS, LUIS, tel: second [phone]. [email or web address] weeks , [place]. tel: gestation of tel: [phone] Viridiana [place] Other Apr-3 Dougherty Referring In Womens malformation of 0-201 Layne. Provider: Albin VALLES, placenta, second 8 700 Layne Dougherty PO Box [facility] K, 700 152, r for suprvsn of [facility], normal , Dr, [facility] [address] SMITH, second 120, Pil[place] 120, [id number], [email or web address] weeks [place], [place] gestation of LUIS SMITH, tel:[phone]. , [place]. tel: tel: [phone] Viridiana [place] Oth disrd of Apr-0 Dougherty Referring In Womens amniotic fluid 2-201 Layne. Provider: Albin VALLES, and membrns, 8 700 Layne Dougherty PO Box second tri, Medical K, 700 152, unspEncounter for [facility], suprvsn of normal Dr, [facility] SMITH, , second 120, Pil[place] 120, [id number], [email or web address] weeks Charles [place], [place] gestation of LUIS LUIS, tel:[phone]. , [place]. tel: tel: [phone] Viridiana [place] Maternal care for Apr-0 Dougherty Referring In Womens Ultrasound excess 2-201 Layne. Provider: Albin VALLES, growth, second 8 700 Layne Dougherty PO Box tri, unspContact Medical , 700 1522, w and exposure to [facility], otliam viral , [facility] [address] SMITH, communicable 120, [place] 120, [id number], [email or web address] weeks Charles [place], gestation of [place], [place], tel: [phone]. , [place]. tel: tel: [phone] Viridiana [place] Maternal care for Feb-2 Dougherty Referring In Womens excess 3-201 Layne. Provider: Albin VALLES, growth, second 8 700 Layne Dougherty PO Box tri, unsp14 weeks Medical , 700 1522, gestation of [facility] Mike, , [facility] [address] SMITH, 120, [place] 120, [id number], Charles [place], LUIS, LUIS, tel: [phone]. , [place]. tel: tel: [phone] Viridiana [place] Encntr screen for Gianluca-2 Dougherty Referring In Womens infections w sexl 6-201 Layne. Provider: Albin VALLES, mode of 8 700 Layne Dougherty PO Box transmissEncounte Medical , 700 1522, r for screening [facility] [place], for otliam [place], [facility] [address] SMITH, infec/parastc 120, Pil[place] 120, [id number], diseasesEncounter Charles [place], for suprvsn of [place], [place], tel: normal , [phone]. [facility] , [place]. tel: trimesterEncounte tel: [phone] r For Other [id number] Specified [id number] weeks gestation of Associates Charles Gianluca-0 Dougherty In Womens 9-201 Layne. Albin VALLES, 8 700 PO Box Medical [address], [address] Mike, [facility], 120, [id number], [facility] [place], tel:[phone] , . tel:[phone] Family History Family Member Diagnosis Age At [...] name Insurance type Covered democrat ID Authorization(s) [facility] [id number] [employer] - Medicaid [place] [id number] [facility] [id number] [employer] - Medicaid [place] [id number] Social History Type Description Quantity Date Captured Alcohol Use Details No Caffeine Use Details Unknown Tobacco Use Status Unknown Smoking Status Never smoker Vital Signs Date / Height Weight BMI Pulse Blood Temperature Respiratory Body Head BMI Time: Rate Pressure Rate Surface Circumference percentile Area 161.60 28.1 111/74 2018 lbs 7 mm[Hg] 9:53 kg/m AM eter (2) Chief Complaint And [...] Complete OB Ultrasound > 14 Weeks Ordered ([id number]) Future Order: Radiology Order Ultrasound OB Follow-up ([id number]) Ordered Date Type Problem Goal Intervention Status [...] virus assessment & precautions dentist, wt gain # HIV and other routine tests risk factors [...]
--- OUTSIDE RECORDS SUMMARY | 2017-12-20 05:12 | External Medical Summary | Continuity of Care Document ---
:1990 Author Organization [facility] Address [address] [place], [place] [id number] Phone Allergies, Adverse Reactions, Alerts Substance Reaction [...] communicable diseases 19 weeks gestation of - Encntr screen for infections w sexl - mode of transmiss Encounter for screening for oth - infec/parastc diseases Encounter for suprvsn of normal - , first trimester Encounter For Other Specified - Screening 10 weeks gestation of - Maternal care for excess growth, - second tri, unsp 14 weeks gestation of - Oth disrd of amniotic fluid and - membrns, second tri, unsp Encounter for suprvsn of normal - , second trimester 19 weeks gestation of - Procedures Procedure Date Ultrasound exam of preg uterus, complete Results Test Name Date and Time Measure Units Reference Range Abnormal Flag Comments Unknown Advance Directives Directive Yes / No Effective Date File Name Unknown Encounters Encounter Practice Location Reason(s) Diagnoses Date Provider Care Team Description For Visit Members [facility] Walshh disrd of Dougherty Referring In [facility] amniotic fluid 2-201 Layne. Provider: marielle Bermudez, 8 700 Layne Dougherty PO Box second tri, Medical K, 700 1522, unspEncounter for [facility], suprvsn of normal , [facility] Dr SMITH, , second 120, Pil[place] 120, , weeks Charles [place], gestation of LUIS SMITH, tel:[phone]. , [place]. tel: tel: [phone] Viridiana S[place] Maternal care for Apr-0 Dougherty Referring In Womens Ultrasound excess 2-201 Layne. Provider: Health REENA, growth, second 8 700 Layne Dougherty PO Box tri, unspContact Medical , 700 1522, w and exposure to [facility], otliam viral , [facility] Dr SMITH, communicable 120, [place] 120, , weeks Charles [place], gestation of LUIS SMITH, tel:[phone]. , [place]. tel: tel: [phone] Viridiana [place] Maternal care for Feb-2 Dougherty Referring In Womens excess 3-201 Layne. Provider: Albin VALLES, growth, second 8 700 Layne Dougherty PO Box tri, unsp14 weeks Medical , 700 1522, gestation of [facility] Mike, , [facility] Dr SMITH, 120, Pil[place] 120, , Charles [place], LUIS, LUIS, tel: [phone]. , [place]. tel: tel: [phone] Viridiana [place] Encntr screen for Gianluca-2 Dougherty Referring In Womens infections w sexl 6-201 Layne. Provider: Health REENA, mode of 8 700 Layne Dougherty PO [facility] 700 1522, r for screening [facility], for oth , [facility] Dr SMITH, infec/parastc 120, Pilo 120, , diseasesEncounter Charles [place], for suprvsn of LUIS, LUIS, tel: normal , [phone]. first , [place]. tel:+ trimesterEncounte tel: [phone] r For Other [id number] Specified [id number] weeks gestation of Associates Charles Dougherty In Womens 9-201 [facility], 8 700 PO [facility] [address], [address] Mike, [facility] [place], 120, [id number], [place], tel: [phone] , . tel: [phone] Family History Family Member Diagnosis Age At [...] name Insurance type Covered republican ID Authorization(s) [facility] [id number] [employer] - Medicaid [place] [id number] Social History Type Description Quantity Date Captured [...] Complete OB Ultrasound > 14 Weeks Ordered ([id number]) Date Type Problem Goal Intervention Status Start [...]
[2017-12-20] MEDS ORDERED: LIDOCAINE 1% (10mg/ml) 2mL INJ PF SDV ID PRN (05:15)
[2017-12-20] MEDS ORDERED: SALINE FLUSH 10ml SYRINGE IV PRN ×2 (05:15→07:01)
[2017-12-20] MEDS ORDERED: MAG-AL + SIM ORAL LIQUID 30ml PO PRN (05:15)
[2017-12-20] MEDS ORDERED: METHYLERGONOVINE 0.2 MG/ML INJECTION IM PRN (05:15)
[2017-12-20] MEDS ORDERED: CARBOPROST 250 MCG/ML INJECTION IM PRN (05:15)
[2017-12-20] MEDS ORDERED: ACETAMINOPHEN 500 MG TABLET PO PRN (05:15)
[2017-12-20] MEDS ORDERED: CALCIUM CARBONATE Chewable 500mg TABLET PO PRN (05:15)
[2017-12-20] MEDS: LR 1,000 ML IV PRN ×2 (05:44→07:14)
[2017-12-20] MEDS: D5LR 1,000 ML IV PRN ×2 (05:45→14:32)
[2017-12-20] MEDS ORDERED: OXYTOCIN DRIP 30 UNIT/500 ML ML IV PRN (06:00)
[2017-12-20 07:01] VITALS: BMI 31.7
--- NOTE | 2017-12-20 08:49 | Anesthesia Preoperative Report ---
Anesthesia Epidural/Spinal Rec - Date and Time Date: 12/20/17 Preoperative Diagnosis: Induction of labor Procedure: Labor Epidural Plan: Epidural - Vital Signs Vital Signs: Temperature 98.3 F 12/20/17 05:04 Pulse Rate 108 H 12/20/17 05:04 Blood Pressure 121/81 12/20/17 05:04 Pulse Oximetry 98 12/20/17 05:04 /Para: P:1 - Medictaions & Allergies Inpatient Medications: Current Medications Acetaminophen (Tylenol) 500 - 1,000 mg PO Q4H PRN PRN Reason: Pain Al Hydroxide/Mg Hydroxide (Maalox Plus) 30 ml PO Q3H PRN PRN Reason: Indigestion Calcium Carbonate (Tums) 500 - 1,000 mg PO Q2H PRN PRN Reason: Indigestion Carboprost Tromethamine (Hemabate) 250 mcg IM O PRN PRN Reason: .Downtime Dextrose/Lactated Ringer's (Dextrose 5%-Lactated Ringers) 1,000 mls @ 125 mls/ hr IV .Q8H PRN PRN Reason: Labor Last Admin: 12/20/17 05:45 Dose: 125 mls/hr Lactated Ringer's (Lactated Ringers) 1,000 mls @ 999 mls/hr IV .Q1H1M PRN Last Admin: 12/20/17 07:14 Dose: 999 mls/hr Oxytocin (Pitocin Drip) 30 unit in 500 mls @ 2 mls/hr IV .Q24H PRN; Protocol PRN Reason: Induction/Augmentation Last Admin: 12/20/17 05:45 Dose: 2 mls/hr Lidocaine HCl (Xylocaine-Mpf 1% Vial) 0.2 mg ID O PRN PRN Reason: IV Start Methylergonovine Maleate (Methergine) 0.2 mg IM O PRN Misoprostol (Cytotec) 800 mcg AK ONCE PRN Sodium Chloride (Iv Flush) 10 - 80 ml IV PRN PRN PRN Reason: Flushing Sodium Chloride (Iv Flush) 10 - 80 ml IV PRN PRN PRN Reason: Flushing Allergies/Adverse Reactions: Allergies Allergy/AdvReac Type Severity Reaction Status Date / Time No Known Allergies Allergy Verified 12/10/17 14:59 - Home Medications Home Medications: Home Medications Medication Instructions Recorded Confirmed Type Vit Calc,Iron,Folic 1 each PO DAILY 12/10/17 12/10/17 History [ Vitamins] - Medical History Neuro/Musculoskeletal: Reports: Depression (no meds) Other History: Reports: Now - Surgical History Reproductive Surgery/Treatment: DENIES: Section Anesthesia Reactions: None Hx Family Anesthesia Reaction: No History of Motion Sickness: No - Social History Smoking Status: Never smoker Second Hand Exposure: No Substance Use Type: does not use Alcohol Intake Frequency: does not drink Hx Chewing Tobacco Use: No - Pertinent Findings Lab Data: CBC and BMP 12/20/17 05:36 12/20/17 05:36 BMP 12/20/17 05:36 Sodium 139 Potassium 3.5 L Chloride 108 H Carbon Dioxide 20 L BUN 7.0 Creatinine 0.5 L Glucose 103 Calcium 9.3 Liver Function 12/20/17 Range/Units 05:36 Total Bilirubin 0.20 (0.20-1.30) MG/DL AST 29 (14-36) U/L ALT 21 (1-35) U/L Alkaline Phosphatase 120 (38-126) U/L Albumin 3.6 (3.5-5.0) g/dL EKG Rhythm: Normal Sinus Rhythm - Physical Exam Respiratory Exam: lungs clear Cardiovascular Exam: regular rate and rhythm - Airway Assessment Mallampati Score: II TMD: 3 Fingerbreadths Neck Extension: good Overall Assessment: may be difficult intubation - ASA ASA Score: 2 - Discussion Discussion: Discussed risks/options/alternatives of anesthesia and questions answered. Patient consents. Nursing pain assessment noted. Anesthesia Discussion: spouse Attestation Statement: Prior to the delivery of any anesthetic medication, I examined the patient, developed the plan, obtained the patient's consent and discussed the risk and benefits of the procedure with the patient/guardian.
[2017-12-20] MEDS ORDERED: BUTORPHANOL 2 MG/ML INJECTION IVP PRN ×3 (13:37→15:02)
[2017-12-20] MEDS ORDERED: DiphenhydrAMINE 25 MG CAPSULE PO PRN (14:59)
[2017-12-20] MEDS ORDERED: HYDROCORTISONE 2.5% CREAM 30gm RECTALLY PRN (14:59)
[2017-12-20] MEDS ORDERED: HYDROCODONE/APAP 5mg/325mg TABLET PO PRN (14:59)
[2017-12-20] MEDS ORDERED: OXYTOCIN DRIP 30 UNIT/500 ML ML IV SCH (15:00)
[2017-12-20] MEDS: IBUPROFEN 800 MG TABLET PO PRN (15:48)
--- NOTE | 2017-12-20 17:47 | Labor and Delivery Note ---
DATE OF DELIVERY 12/20/2017 JOVAN Guillen is a 27-year-old 3, para 1 at 39 weeks gestational age who was brought in for an induction this morning due to placental lakes and decreased movement. She was started on Pitocin. Her cervix was still closed so a Thurman bulb was threaded through her cervix to help with ripening. Once that was expelled she was 4 cm dilated. Her membranes were ruptured artificially, returning clear fluids. She progressed steadily throughout labor. She only had to push for a couple of contractions and had a spontaneous vaginal delivery in the ROSALIE position of a viable male infant, Apgars 8/9, weight 3295 g, name "Luc." The baby was vigorous at delivery so he was placed on mom's abdomen and the cord clamping was delayed for approximately two minutes. The placenta delivered spontaneously. She had no lacerations. Mom and baby tolerated the delivery well. MTDD
[2017-12-21 02:22] VITALS: RESP 16
[2017-12-21] MEDS: IBUPROFEN 800 MG TABLET PO PRN ×2 (02:23→10:33)
[2017-12-21] MEDS ORDERED: DOCUSATE CALCIUM 240 MG CAPSULE PO SCH (09:00)
--- NOTE | 2017-12-21 11:01 | Progress Note ---
OB PP Progress Note Free Text - Date Date: 12/21/17 - Progress Note Progress Note: vss af instructions reviewed fu 5-6wks q&a-krb
[2017-12-21 16:29] VITALS: BP 102/64; PULSE 72; TEMP 98.2; O2SAT 99
== END 2017-12-21 17:34 | disposition home or self-care (01) | DRG 774 ==
LOC: MC 05:04
PROVIDERS: ADMIT Obstetrics & Gynecology; ATTEND Obstetrics & Gynecology